=== PATIENT | female | born 1985 | race Two or more races ===

== ENCOUNTER → 2018-04-21 | Outpatient (CLI) | payer OTHER ==
[~2018-04-21] MED LIST: GADOBUTROL 10 MMOL/10 ML VIAL ONE
== END | disposition home or self-care (01) ==
LOC: CFH 10:40
PROVIDERS: ATTEND Neurological Surgery
DX: E23.7 Disorder of pituitary gland, unspecified (principal); D35.2 Benign neoplasm of pituitary gland
CPT/HCPCS: 70553; A9585